=== PATIENT | male | born 1960 | race Caucasian/White ===

== ENCOUNTER 2018-09-24 20:08 | Emergency (ER) | payer OTHER ==
--- NOTE | 2018-09-24 20:54 | RAD ---
RADIOGRAPH CHEST 1 VIEW: 09/24/18 HISTORY: 57-year-old male with chest pain for eight days. FINDINGS: There are no air space densities, pulmonary edema, pneumothorax, or cardiomegaly. The lateral costop hrenic angles are sharp. IMPRESSION: No acute cardiopulmonary findings. jn [] POS: [facility]
[2018-09-24 20:58] LABS: #Basophils 0.1 thou/uL (0.0-0.2); #Eosinphils 0.3 thou/uL (0.0-0.7); #Lymphocytes 2.4 thou/uL (1.20-3.40); #Monocytes 0.9 thou/uL (0.11-0.59); #Neutrophils 5.1 thou/uL (1.40-6.50); %Basophils 0.8 % (0.0-1.0); %Eosinophils 3.4 % (0.0-10.0); %Lymphocytes 27.6 % (21.0-51.0); %Monocytes 9.7 % (0.0-10.0); %Neutrophils 58.4 % (42.0-75.0); Hemoglobin 14.6 g/dL (14.0-18.0); Mean Corpuscular HGB CONC 34.6 g/dL (32.0-36.0); Mean Corpuscular Hemoglobin 32.4 pg (27.0-31.0); Mean Corpuscular Volume 93.6 fL (78.0-98.0); Mean Platelet Volume 7.3 fL (7.4-10.4); Platelet Count 247 thou/uL (130-400); RBC Distribution Width 11.3 % (11.5-14.5); Red Blood Cell (RBC) Count 4.52 mill/uL (4.70-6.10); White Blood Cell (WBC) Count 8.8 thou/uL (4.8-10.8)
[2018-09-24 21:17] LABS: ALT (SGPT) 54 U/L (8-55); AST (SGOT) 38 U/L (5-34); Albumin 4.1 g/dL (3.5-5.0); Alkaline Phosphatase 108 U/L (40-150); Anion Gap 12 mmol/L (10-20); BUN (Urea Nitrogen) 11 mg/dL (8.4-25.7); Bilirubin, Total 0.5 mg/dL (0.2-1.2); CK (CPK) 44 U/L (30-200); Calc. Creatinine Clearance 0 mL/min (70-130); Calcium 9.4 mg/dL (7.8-10.44); Carbon Dioxide 26 mmol/L (22-29); Chloride 104 mmol/L (98-107); Estimated GFR-MDRD 89; Globulin 3.3 g/dL (2.4-3.5); Glucose 175 mg/dL (70-105); Lipase 10 U/L (8-78); Potassium 4.3 mmol/L (3.5-5.1); Protein, Total 7.4 g/dL (6.0-8.3); Sodium 138 mmol/L (136-145)
[2018-09-24] MEDS ORDERED: Proparacaine 0.5% Opth 15 ML BOT ONE (21:36)
--- NOTE | 2018-09-24 21:38 | CT ---
FCT Brain WO Con: 09/24/2018 12:00 AM CLINICAL HISTORY: Nausea/vomiting, occipital headache and blurred vision. COMPARISON: None. FINDINGS: Hemorrhage: None. Ventricular system: Normal in size and morphology for the patient's age. Cerebral parenchyma: Normal Midline shift: None. Mass: No mass effect. Calvarium: Normal. Visualized Paranasal sinuses: Clear. IMPRESSION: No acute intracranial abnormalities.
[2018-09-24] MEDS ORDERED: Acetaminophen 500 MG TAB ONE (21:54)
[2018-09-24] MEDS ORDERED: Aspirin Chewable 81 MG TAB ONE (21:54)
[2018-09-24] MEDS ORDERED: Nitroglycerin 2% Ointment 1 INCH/1 GM Packet ONE (21:54)
[2018-09-24] MEDS ORDERED: Ketorolac Tromethamine 30 MG/ML VIAL ONE (23:56)
== END 2018-09-25 00:14 ==
LOC: EEVIPCON 20:08 → ERS 20:08
DX: R07.9 Chest pain, unspecified (principal); R51 Headache; I10 Essential (primary) hypertension; J44.9 Chronic obstructive pulmonary disease, unspecified; Z87.891 Personal history of nicotine dependence
CPT/HCPCS: 70450; 71045; 80053; 82550; 83690; 84484; 85025; 93005; 94760; 96374; J1885

== ENCOUNTER 2018-12-22 17:39 | Emergency (ER) | payer OTHER ==
--- NOTE | 2018-12-22 18:52 | RAD ---
EXAM: Single view of the abdomen HISTORY: Abdominal pain and abdominal hernia COMPARISON: None FINDINGS: Single view of the abdomen shows a nonspecific, nonobstructive bowel gas pattern. Contrast is seen throughout the colon from recent contrast examination. No suspicious calcifications are seen. The bones are unremarkable. IMPRESSION: Unremarkable exam
--- NOTE | 2018-12-22 20:41 | CON ---
DATE OF CONSULTATION: 12/22/2018 HISTORY OF PRESENT ILLNESS: This is a 57-year-old inmate of a correctional facility. The patient was seen in [facility] with abdominal pain associated with his chronic ventral hernia. The patient denies any nausea or vomiting. He is passing flatus. Last bowel movement was 2 days ago. He denies any fevers or chills. PAST MEDICAL HISTORY: Significant for chronic ventral hernia over 30 years duration. Other pertinent past medical history includes essential hypertension, chronic hepatitis C, COPD, and degenerative arthritic disease. PAST SURGICAL HISTORY: Pertinent for appendectomy. SOCIAL HISTORY: The patient is currently incarcerated. He has an over 20-pack year cigarette smoking history, but has not smoked over 10 years. He denies any ethanol or illicit drug abuse. FAMILY HISTORY: Noncontributory for this patient's age. REVIEW OF SYSTEMS: Ten-point review of systems essentially unremarkable except as stated in past medical history and chief complaint. PHYSICAL EXAMINATION: GENERAL: This reveals a 57-year-old normally developed man, who is otherwise coherent, interactive, and appears stated age. The patient is alert and oriented x3, appears to be in no acute distress at the time of my evaluation. VITAL SIGNS: Include blood pressure 130/78, pulse 76, respiratory rate 16, temperature 98.2 degrees Fahrenheit, and oxygen saturation 99% on room air. HEENT: Pupils are equal, round, and reactive to light and accommodation. Extraocular muscles are intact bilaterally. He has no scleral icterus present. HEART: Reveals regular rate and rhythm. No murmurs or gallops auscultated. LUNGS: Clear to auscultation bilaterally. Breathing, regular and nonlabored. ABDOMEN: Soft with giant ventral hernia, which contains multiple loops of bowel. The overlying skin is denuded. He has no significant abdominal tenderness to palpation. Subjectively, though he complains of pain, however, he has no peritoneal signs on examination when distracted. Liver and spleen are nonpalpable below costal margins. Although, the patient denies having had any other surgeries besides appendectomy. His umbilicus is non-existent. NEUROLOGIC: Reveals no focal deficits present. LABORATORY FINDINGS: Today include a CBC with 7600 white blood cells, hemoglobin and hematocrit of 14.2 and 41.1 respectively. Platelet count is 229,000. Metabolic profile; sodium 138, potassium is 4.4, chloride is 105, bicarb is 23, BUN 15, creatinine 0.99, glucose 232, lactic acid is 1.7. AST and ALT are elevated at 45 and 71 respectively. I have personally reviewed the CT scan of the abdomen and pelvis obtained in [facility], which reveals a large ventral hernia, which contains small and large bowel. The oral contrast is already in the proximal colon. No pneumatosis intestinalis or pneumoperitoneum is evident. No free fluid is noted. I obtained abdominal x-ray here, which shows the oral contrast to be now in the distal descending colon. IMPRESSION: 1. Giant chronic ventral hernia with no evidence of obstruction. 2. History of essential hypertension. 3. History of chronic hepatitis C. RECOMMENDATIONS: There is no acute surgical indication for this patient at this time. The patient will be referred to [facility] for possible elective ventral hernia repair with likelihood of abdominal wall reconstruction at that time. Above findings and recommendations have been discussed with the patient, who indicates understanding of information given. I have answered his questions. Thank you again, Dr. Mckeon for allowing me the opportunity to place in the care of this patient. Job ID: [id number]
== END 2018-12-22 19:32 ==
LOC: ERS 17:39 → EEVIPCON 17:39 → ERS 19:32
DX: K43.9 Ventral hernia without obstruction or gangrene (principal); I10 Essential (primary) hypertension; J44.9 Chronic obstructive pulmonary disease, unspecified; Z87.891 Personal history of nicotine dependence; Z79.899 Other long term (current) drug therapy
CPT/HCPCS: 74018

== ENCOUNTER 2023-07-21 01:21 | Inpatient (IN) | payer OTHER ==
[2023-07-21] MEDS ORDERED: Furosemide 40 MG (4 mL) VIAL ONE ×2 (01:49→09:25)
[2023-07-21] MEDS ORDERED: Enoxaparin 100 MG (1 mL) SYRINGE ONE (02:24)
[2023-07-21 02:41] LABS: #Monocytes 0.3 thou/uL (0.11-0.59); #Neutrophils 16.3 thou/uL (1.40-6.50); %Basophils 0.2 % (0.0-1.0); %Eosinophils 0.2 % (0.0-10.0); %Lymphocytes 3.5 % (21.0-51.0); %Monocytes 1.9 % (0.0-10.0); %Neutrophils 93.6 % (42.0-75.0); Mean Corpuscular HGB CONC 34.1 g/dL (32.0-36.0); Mean Corpuscular Hemoglobin 30.2 pg (27.0-31.0); Mean Corpuscular Volume 88.6 fl (78.0-98.0); Mean Platelet Volume 9.8 fL (7.4-10.4); Platelet Count 272 10x3/uL (130-400); RBC Distribution Width 13.6 % (11.5-14.5); Red Blood Cell (RBC) Count 4.63 mill/uL (4.70-6.10); White Blood Cell (WBC) Count 17.5 10x3/uL (4.8-10.8)
[2023-07-21 03:04] LABS: ALT (SGPT) 64 U/L (8-55); AST (SGOT) 61 U/L (5-34); Albumin 3.5 g/dL (3.4-4.8); Alkaline Phosphatase 81 U/L (40-110); Anion Gap 15 mmol/L (10-20); BUN (Urea Nitrogen) 28 mg/dL (8.4-25.7); Calc. Creatinine Clearance 103 mL/min (70-130); Calcium 8.6 mg/dL (7.8-10.44); Carbon Dioxide 19 mmol/L (23-31); Chloride 103 mmol/L (98-107); Estimated GFR 77; Globulin 3.5 g/dL (2.4-3.5); Glucose 166 mg/dL (80-115); Magnesium 1.6 mg/dL (1.6-2.6); Potassium 3.9 mmol/L (3.5-5.1); Sodium 133 mmol/L (136-145)
[2023-07-21 03:13] LABS: Troponin I 0.054 ng/mL (< 0.028)
[2023-07-21] MEDS ORDERED: Ondansetron PF 4 MG/2 ML Vial IVP PRN (03:42)
[2023-07-21] MEDS ORDERED: Acetaminophen 325 MG TAB PO PRN (03:42)
[2023-07-21] MEDS ORDERED: Ipratropium/Albuterol 3 ML NEB NEB PRN (03:42)
[2023-07-21] MEDS ORDERED: Ondansetron ODT 4 MG TAB PO PRN (03:42)
[2023-07-21] MEDS ORDERED: Dextrose 50% Abboject 50 ML SYRINGE SLOW IVP PRN (04:56)
[2023-07-21] MEDS ORDERED: Dextrose 5% in Water 1,000 ML IV PRN (04:56)
[2023-07-21] MEDS ORDERED: Glucagon 1 MG/ML KIT IM PRN (04:56)
[2023-07-21] MEDS ORDERED: Electrolyte Replacement Protocol 1 EACH FS SCH (05:45)
[2023-07-21] MEDS ORDERED: Magnesium 2 GM/50 ML BAG (IN WATER) ONE (05:48)
[2023-07-21] MEDS ORDERED: Magnesium 2 GM/50 ML(in water) 2 GM in Premix 1 BAG IVPB SCH (06:00)
[2023-07-21 06:27] LABS: Troponin I 0.061 ng/mL (< 0.028)
[2023-07-21 06:30] LABS: Amphetamine Detected (NotDetected); Barbiturates Screen Not Detected (NotDetected); Benzodiazepine Screen Not Detected (NotDetected); Cocaine Metabolite Screen Not Detected (NotDetected); Methadone Not Detected (NotDetected); Methamphetamine Detected (NotDetected); Opiate Screen Not Detected (NotDetected); Oxycodone Screen Not Detected (NotDetected); Phencyclidine (PCP) Not Detected (NotDetected); THC/Cannabinoid Screen Not Detected (NotDetected); Tricyclic Screen Not Detected (NotDetected)
[2023-07-21 07:49] LABS: Hemoglobin A1c 11.5 % (4.0-6.0)
[2023-07-21] MEDS ORDERED: Ipratropium/Albuterol 3 ML NEB ONE (08:41)
[2023-07-21] MEDS: Ipratropium/Albuterol 3 ML NEB NEB SCH ×5 (08:45→23:07)
[2023-07-21 08:59] LABS: Troponin I 0.041 ng/mL (< 0.028)
[2023-07-21] MEDS ORDERED: Azithromycin 250 MG TAB ONE (09:25)
[2023-07-21] MEDS ORDERED: Iopamidol-370 76% 500 ML MDV (1 ML CHARGE) ONE (09:58)
[2023-07-21] MEDS: Furosemide 40 MG (4 mL) VIAL SLOW IVP SCH (10:45)
[2023-07-21] MEDS: Azithromycin 250 MG TAB PO SCH (10:45)
[2023-07-21] MEDS ORDERED: HumaLOG 300 UNITS/3 ML VIAL ONE (12:22)
[2023-07-21] MEDS: HumaLOG 300 UNITS/3 ML VIAL SC PRN ×3 (12:32→22:03)
[2023-07-21] MEDS ORDERED: dilTIAZem 25 MG/5 ML VIAL ONE (13:36)
[2023-07-21] MEDS ORDERED: dilTIAZem 125 MG/25 ML SDV ONE ×2 (13:41→13:47)
[2023-07-21] MEDS ORDERED: Sodium Chloride 0.9% 100 ML ONE (13:42)
[2023-07-21] MEDS: dilTIAZem 125 MG in Sodium Chloride 0.9% 100 ML IVPB SCH (13:52)
[2023-07-21 18:12] VITALS: BMI 29.1
[2023-07-21] MEDS ORDERED: Insulin Regular 300 UNITS/3 ML VIAL SC SCH (19:45)
[2023-07-21] MEDS: Enoxaparin 100 MG (1 mL) SYRINGE SC SCH (20:15)
[2023-07-21] MEDS: dilTIAZem 30 MG TAB PO SCH (21:09)
[2023-07-22] MEDS: Ipratropium/Albuterol 3 ML NEB NEB SCH ×5 (01:56→18:56)
[2023-07-22] MEDS: dilTIAZem 125 MG in Sodium Chloride 0.9% 100 ML IVPB SCH ×2 (02:58→16:42)
[2023-07-22 04:32] LABS: #Monocytes 1.4 thou/uL (0.11-0.59); #Neutrophils 16.2 thou/uL (1.40-6.50); %Basophils 0.1 % (0.0-1.0); %Monocytes 7.4 % (0.0-10.0); %Neutrophils 85.8 % (42.0-75.0); Hematocrit 39.9 % (42.0-52.0); Hemoglobin 13.7 g/dL (14.0-18.0); Mean Corpuscular HGB CONC 34.3 g/dL (32.0-36.0); Mean Corpuscular Hemoglobin 30.4 pg (27.0-31.0); Mean Corpuscular Volume 88.5 fl (78.0-98.0); Mean Platelet Volume 10.1 fL (7.4-10.4); Platelet Count 325 10x3/uL (130-400); RBC Distribution Width 13.6 % (11.5-14.5); Red Blood Cell (RBC) Count 4.51 mill/uL (4.70-6.10); White Blood Cell (WBC) Count 18.9 10x3/uL (4.8-10.8)
[2023-07-22 05:06] LABS: ALT (SGPT) 52 U/L (8-55); AST (SGOT) 34 U/L (5-34); Albumin 3.6 g/dL (3.4-4.8); Alkaline Phosphatase 76 U/L (40-110); Bilirubin, Direct 0.5 mg/dL (0.1-0.3); Bilirubin, Total 0.8 mg/dL (0.2-1.2)
[2023-07-22 05:11] LABS: Anion Gap 19 mmol/L (10-20); BUN (Urea Nitrogen) 53 mg/dL (8.4-25.7); Calc. Creatinine Clearance 66 mL/min (70-130); Calcium 9.2 mg/dL (7.8-10.44); Carbon Dioxide 20 mmol/L (23-31); Chloride 99 mmol/L (98-107); Estimated GFR 46; Glucose 289 mg/dL (80-115); Potassium 4.4 mmol/L (3.5-5.1); Sodium 134 mmol/L (136-145)
[2023-07-22] MEDS: dilTIAZem 30 MG TAB PO SCH ×3 (05:22→20:59)
[2023-07-22] MEDS: HumaLOG 300 UNITS/3 ML VIAL SC PRN ×4 (05:44→18:44)
[2023-07-22] MEDS ORDERED: dilTIAZem 30 MG TAB PO SCH ×2 (06:00→06:30)
[2023-07-22] MEDS: Digoxin 0.5 MG/2 ML AMP SLOW IVP SCH ×3 (06:34→18:44)
[2023-07-22] MEDS: Furosemide 40 MG (4 mL) VIAL SLOW IVP SCH (09:23)
[2023-07-22] MEDS: Enoxaparin 100 MG (1 mL) SYRINGE SC SCH ×2 (09:23→20:59)
[2023-07-22] MEDS: Azithromycin 250 MG TAB PO SCH (09:23)
[2023-07-22] MEDS ORDERED: Insulin Glargine 30 UNITS/0.3 ML VIAL SC SCH (16:15)
[2023-07-22 17:44] LABS: Bacteria/HPF None Seen HPF (None Seen); Bilirubin Negative (Negative); Blood, Urine Negative (Negative); CAUTI Indications for Culture Dysuria,urgency,freq; Clarity Clear (Clear); Glucose, Urine (Dipstick) 50 mg/dL (Negative); Ketone, Urine Negative (Negative); Leukocyte Negative Leu/uL (Negative); Nitrite Negative (Negative); Protein, Urine (Dipstick) Negative (Neg-Trace); RBC/HPF None Seen HPF (0-3); Specific Gravity, Urine 1.018 (1.002-1.036); Squamous Epithelial 0-3 HPF (0-3); Urobilinogen Normal mg/dL (Less than 2); WBC/HPF 0-3 HPF (0-3)
[2023-07-22 17:47] LABS: Sperm/HPF 3+ HPF (None Seen)
[2023-07-22 17:48] LABS: Urine Culture Reflex No No
[2023-07-23] MEDS: Ipratropium/Albuterol 3 ML NEB NEB SCH ×4 (00:05→19:39)
[2023-07-23] MEDS: HumaLOG 300 UNITS/3 ML VIAL SC PRN ×5 (00:41→23:46)
[2023-07-23] MEDS: dilTIAZem 30 MG TAB PO SCH (05:32)
[2023-07-23 06:52] LABS: #Eosinphils 0.1 thou/uL (0.0-0.7); #Monocytes 1.4 thou/uL (0.11-0.59); #Neutrophils 9.1 thou/uL (1.40-6.50); %Basophils 0.2 % (0.0-1.0); %Eosinophils 0.7 % (0.0-10.0); %Lymphocytes 12.4 % (21.0-51.0); %Monocytes 11.2 % (0.0-10.0); %Neutrophils 74.8 % (42.0-75.0); Hematocrit 41.3 % (42.0-52.0); Hemoglobin 13.8 g/dL (14.0-18.0); Mean Corpuscular HGB CONC 33.4 g/dL (32.0-36.0); Mean Corpuscular Hemoglobin 29.6 pg (27.0-31.0); Mean Corpuscular Volume 88.4 fl (78.0-98.0); Mean Platelet Volume 9.3 fL (7.4-10.4); Platelet Count 268 10x3/uL (130-400); RBC Distribution Width 13.8 % (11.5-14.5); Red Blood Cell (RBC) Count 4.67 mill/uL (4.70-6.10); White Blood Cell (WBC) Count 12.2 10x3/uL (4.8-10.8)
[2023-07-23 07:17] LABS: Anion Gap 14 mmol/L (10-20); BUN (Urea Nitrogen) 45 mg/dL (8.4-25.7); Calc. Creatinine Clearance 77 mL/min (70-130); Calcium 8.7 mg/dL (7.8-10.44); Carbon Dioxide 22 mmol/L (23-31); Chloride 102 mmol/L (98-107); Estimated GFR 56; Glucose 242 mg/dL (80-115); Sodium 134 mmol/L (136-145)
[2023-07-23] MEDS ORDERED: Insulin Glargine 30 UNITS/0.3 ML VIAL SC SCH ×2 (09:00→17:15)
[2023-07-23] MEDS: Azithromycin 250 MG TAB PO SCH (09:49)
[2023-07-23] MEDS: Enoxaparin 100 MG (1 mL) SYRINGE SC SCH (09:50)
[2023-07-23] MEDS: Furosemide 40 MG (4 mL) VIAL SLOW IVP SCH (09:50)
[2023-07-23] MEDS: dilTIAZem 125 MG in Sodium Chloride 0.9% 100 ML IVPB SCH (13:28)
[2023-07-23] MEDS: Apixaban 5 MG TAB PO SCH (20:53)
[2023-07-24] MEDS: Ipratropium/Albuterol 3 ML NEB NEB SCH ×3 (02:13→12:54)
[2023-07-24 05:25] LABS: #Eosinphils 0.3 thou/uL (0.0-0.7); #Monocytes 1.2 thou/uL (0.11-0.59); #Neutrophils 5.6 thou/uL (1.40-6.50); %Basophils 0.2 % (0.0-1.0); %Eosinophils 3.4 % (0.0-10.0); %Lymphocytes 18.3 % (21.0-51.0); %Monocytes 13.1 % (0.0-10.0); %Neutrophils 64.3 % (42.0-75.0); Hematocrit 45.2 % (42.0-52.0); Hemoglobin 14.7 g/dL (14.0-18.0); Mean Corpuscular HGB CONC 32.5 g/dL (32.0-36.0); Mean Corpuscular Hemoglobin 29.1 pg (27.0-31.0); Mean Corpuscular Volume 89.5 fl (78.0-98.0); Mean Platelet Volume 9.5 fL (7.4-10.4); Platelet Count 286 10x3/uL (130-400); RBC Distribution Width 13.8 % (11.5-14.5); Red Blood Cell (RBC) Count 5.05 mill/uL (4.70-6.10); White Blood Cell (WBC) Count 8.8 10x3/uL (4.8-10.8)
[2023-07-24 05:54] LABS: Anion Gap 12 mmol/L (10-20); BUN (Urea Nitrogen) 29 mg/dL (8.4-25.7); Calc. Creatinine Clearance 104 mL/min (70-130); Calcium 8.7 mg/dL (7.8-10.44); Carbon Dioxide 26 mmol/L (23-31); Chloride 103 mmol/L (98-107); Estimated GFR 82; Glucose 142 mg/dL (80-115); Sodium 137 mmol/L (136-145)
[2023-07-24] MEDS: Apixaban 5 MG TAB PO SCH (08:09)
[2023-07-24] MEDS: Furosemide 40 MG (4 mL) VIAL SLOW IVP SCH ×2 (08:10→08:17)
[2023-07-24] MEDS ORDERED: Sacubitril 24MG/Valsartan 26 MG TAB PO SCH (09:00)
[2023-07-24] MEDS ORDERED: Insulin Glargine 30 UNITS/0.3 ML VIAL SC SCH (09:00)
[2023-07-24] MEDS ORDERED: Lisinopril 2.5 MG TAB PO SCH (09:00)
[2023-07-24] MEDS ORDERED: Furosemide 40 MG TAB PO SCH (09:45)
[2023-07-24 11:23] VITALS: BP 138/84; TEMP 98
[2023-07-24] MEDS ORDERED: FLU VACC QS2023-24(6MOS UP)/PF 60 MCG/0.5 ML SYRINGE IM ONE (17:00)
[2023-07-25] MEDS ORDERED: Furosemide 40 MG TAB PO SCH (07:30)
== END 2023-07-24 12:50 | disposition home or self-care (01) | DRG 291 ==
LOC: ERS 01:21 → ERHOLD 02:12 → 2SW 16:18
PROVIDERS: ADMIT Student in an Organized Health Care Education/Training Program; ATTEND Internal Medicine
DX: I13.0 Hypertensive heart and chronic kidney disease with heart failure and stage 1 through stage 4 chronic kidney disease, or unspecified chronic kidney disease (principal); I50.23 Acute on chronic systolic (congestive) heart failure; J96.01 Acute respiratory failure with hypoxia; I48.19 Other persistent atrial fibrillation; N17.9 Acute kidney failure, unspecified; E87.1 Hypo-osmolality and hyponatremia; J44.1 Chronic obstructive pulmonary disease with (acute) exacerbation; F17.210 Nicotine dependence, cigarettes, uncomplicated; K43.9 Ventral hernia without obstruction or gangrene; K42.9 Umbilical hernia without obstruction or gangrene; N18.2 Chronic kidney disease, stage 2 (mild); E11.22 Type 2 diabetes mellitus with diabetic chronic kidney disease; R74.01 Elevation of levels of liver transaminase levels; Z79.899 Other long term (current) drug therapy; Z79.84 Long term (current) use of oral hypoglycemic drugs; Z90.49 Acquired absence of other specified parts of digestive tract; Z98.890 Other specified postprocedural states
CPT/HCPCS: 36415; 36416; 71275; 80048; 80053; 80076; 80306; 81001; 83036; 83735; 83880; 84443; 84484; 85025; 93005; 93306; 94640; 96365; 96366; 96372; 96374; 97139; J1160; J1650; J1815; J1940; J3475; J3490; J7620; Q9967

== ENCOUNTER 2024-05-27 03:40 | Inpatient (IN) | payer MEDICARE, MEDICAID ==
[2024-05-27 04:24] LABS: #Basophils Less than 0.03 10x3/uL (0.0-0.2); #Eosinophils Less than 0.03 10x3/uL (0.0-0.7); %Basophils 0.2 % (0.0-1.0); %Eosinophils 0.2 % (0.0-10.0); %Lymphocytes 4.5 % (21.0-51.0); %Monocytes 5.6 % (0.0-10.0); %Neutrophils 88.9 % (42.0-75.0); Hematocrit 36.6 % (42.0-52.0); Hemoglobin 11.9 g/dL (14.0-18.0); Mean Corpuscular HGB CONC 32.5 g/dL (32.0-36.0); Mean Corpuscular Hemoglobin 30.9 pg (27.0-31.0); Mean Corpuscular Volume 95.1 fL (78.0-98.0); Mean Platelet Volume 9.5 fL (7.4-10.4); Platelet Count 243 10x3/uL (130-400); RBC Distribution Width 13.9 % (11.5-14.5); Red Blood Cell (RBC) Count 3.85 mill/uL (4.70-6.10)
[2024-05-27 05:01] LABS: Acetaminophen Less than 10 mcg/mL (Less than 10); Alcohol Less than 10.0 mg/dL (Less than 10); Salicylate Less than 8.0 mg/dL (Less than 8.0)
[2024-05-27 05:02] LABS: ALT (SGPT) 153 U/L (8-55); AST (SGOT) 33 U/L (5-34); Albumin 3.4 g/dL (3.4-4.8); Alkaline Phosphatase 83 U/L (40-110); Anion Gap 16 mmol/L (10-20); BUN (Urea Nitrogen) 17 mg/dL (8.4-25.7); Bilirubin, Total 1.2 mg/dL (0.2-1.2); CK (CPK) 89 U/L (30-200); Calc. Creatinine Clearance 0 mL/min (70-130); Calcium 8.9 mg/dL (7.8-10.44); Carbon Dioxide 19 mmol/L (23-31); Chloride 108 mmol/L (98-107); Estimated GFR 49; Globulin 3.9 g/dL (2.4-3.5); Glucose 194 mg/dL (80-115); Potassium 4.3 mmol/L (3.5-5.1); Protein, Total 7.3 g/dL (5.8-8.1); Sodium 139 mmol/L (136-145)
[2024-05-27] MEDS ORDERED: Metoprolol Tartrate 50 MG TAB ONE (05:24)
[2024-05-27 05:33] LABS: Amphetamine Detected (NotDetected); Barbiturates Screen Not Detected (NotDetected); Benzodiazepine Screen Not Detected (NotDetected); Cocaine Metabolite Screen Not Detected (NotDetected); Methadone Not Detected (NotDetected); Methamphetamine Detected (NotDetected); Opiate Screen Not Detected (NotDetected); Oxycodone Screen Not Detected (NotDetected); Phencyclidine (PCP) Not Detected (NotDetected); THC/Cannabinoid Screen Not Detected (NotDetected); Tricyclic Screen Not Detected (NotDetected)
[2024-05-27 07:43] LABS: Troponin I 0.044 ng/mL (< 0.028)
[2024-05-27] MEDS ORDERED: Ondansetron PF 4 MG/2 ML Vial IVP PRN (09:01)
[2024-05-27] MEDS ORDERED: Dextrose 5% in Water 1,000 ML IV PRN (09:22)
[2024-05-27] MEDS ORDERED: Dextrose 50% Abboject 50 ML SYRINGE SLOW IVP PRN (09:22)
[2024-05-27] MEDS ORDERED: Glucagon 1 MG/ML KIT IM PRN (09:22)
[2024-05-27] MEDS ORDERED: Insulin Lispro 100 UNIT/ML 10 ML VIAL SC PRN ×2 (09:22)
[2024-05-27 11:21] VITALS: BMI 27.0
[2024-05-27] MEDS ORDERED: Nicotine 21 MG PATCH TD PRN (12:02)
[2024-05-27] MEDS: Apixaban 5 MG TAB PO SCH ×2 (12:08→19:54)
[2024-05-27 12:09] LABS: Lactic Acid 2.27 mmol/L (0.5-2.2)
[2024-05-27] MEDS: Acetaminophen 325 MG TAB PO PRN (12:16)
[2024-05-27] MEDS: Ondansetron ODT 4 MG TAB PO PRN (12:16)
[2024-05-27 12:20] LABS: Troponin I 0.055 ng/mL (< 0.028)
[2024-05-27] MEDS: Lactated Ringer's 1,000 ML IV SCH (12:20)
[2024-05-27] MEDS ORDERED: Menthol/Camphor Lotion 222 ml Bottle TOP PRN (12:45)
[2024-05-27 13:24] LABS: Troponin I 0.059 ng/mL (< 0.028)
[2024-05-27] MEDS: traMADol HCl 50 MG TAB PO SCH (13:24)
[2024-05-27] MEDS: Lorazepam 2 MG/ML VIAL SLOW IVP PRN (13:28)
[2024-05-27 14:40] LABS: Bacteria/HPF 3+ HPF (None Seen); Bilirubin Negative (Negative); Blood, Urine Negative (Negative); CAUTI Indications for Culture Alt mental st,lethar; Clarity Clear (Clear); Glucose, Urine (Dipstick) Greater than 1000 mg/dL (Negative); Ketone, Urine Trace mg/dL (Negative); Leukocyte Negative Leu/uL (Negative); Nitrite Negative (Negative); Protein, Urine (Dipstick) 50 mg/dL (Neg-Trace); RBC/HPF 0-3 HPF (0-3); Specific Gravity, Urine 1.023 (1.002-1.036); Squamous Epithelial 0-3 HPF (0-3); Urobilinogen Normal mg/dL (Less than 2); pH, Urine 5.5 (5.0-9.0)
[2024-05-27 14:45] LABS: Urine Culture Reflex No No
[2024-05-27] MEDS: Sterile Water 10 ML ONE ×2 (15:58→18:43)
[2024-05-27] MEDS ORDERED: OLANZapine 5 MG TAB PO SCH (16:00)
[2024-05-27] MEDS: Ziprasidone 20 MG VIAL ONE (16:12)
[2024-05-27] MEDS: Ziprasidone 20 MG VIAL IM SCH ×2 (16:12→18:43)
[2024-05-27] MEDS: Gabapentin 300 MG CAP PO SCH (16:19)
[2024-05-27] MEDS: Lorazepam 2 MG/ML VIAL ONE (19:28)
[2024-05-27] MEDS: Haloperidol Lactate 5 MG/ML VIAL ONE (19:37)
[2024-05-27] MEDS: Dexmedetomidine In 0.9 % NaCl 100 ML IV SCH (19:49)
[2024-05-27] MEDS: Atorvastatin Calcium 40 MG TAB PO SCH (19:54)
[2024-05-27] MEDS: Insulin Glargine 30 UNITS/0.3 ML VIAL SC SCH (19:54)
[2024-05-27 20:14] VITALS: BP 121/86
[2024-05-27 21:05] LABS: Lactic Acid 1.35 mmol/L (0.5-2.2)
[2024-05-27 21:08] LABS: Anion Gap 13 mmol/L (10-20); BUN (Urea Nitrogen) 23 mg/dL (8.4-25.7); Calc. Creatinine Clearance 65 mL/min (70-130); Calcium 8.6 mg/dL (7.8-10.44); Carbon Dioxide 20 mmol/L (23-31); Chloride 110 mmol/L (98-107); Estimated GFR 50; Glucose 85 mg/dL (80-115); Potassium 4.1 mmol/L (3.5-5.1); Sodium 139 mmol/L (136-145)
[2024-05-28] MEDS: Dextrose 5%-Lactated Ringers 1,000 ML IV SCH (02:30)
[2024-05-28 04:02] LABS: #Basophils 0.06 10x3/uL (0.0-0.2); %Basophils 0.8 % (0.0-1.0); %Eosinophils 5.7 % (0.0-10.0); %Lymphocytes 28.2 % (21.0-51.0); %Monocytes 17.9 % (0.0-10.0); %Neutrophils 46.8 % (42.0-75.0); Hematocrit 38.8 % (42.0-52.0); Hemoglobin 12.5 g/dL (14.0-18.0); Mean Corpuscular HGB CONC 32.2 g/dL (32.0-36.0); Mean Corpuscular Hemoglobin 31.4 pg (27.0-31.0); Mean Corpuscular Volume 97.5 fL (78.0-98.0); Mean Platelet Volume 10.4 fL (7.4-10.4); Platelet Count 234 10x3/uL (130-400); Red Blood Cell (RBC) Count 3.98 mill/uL (4.70-6.10)
[2024-05-28] MEDS ORDERED: Ipratropium/Albuterol 3 ML NEB NEB PRN (04:02)
[2024-05-28 04:17] LABS: Anion Gap 13 mmol/L (10-20); BUN (Urea Nitrogen) 23 mg/dL (8.4-25.7); Calc. Creatinine Clearance 67 mL/min (70-130); Carbon Dioxide 20 mmol/L (23-31); Cardiac Risk 5.1 (Less than 4.5); Chloride 112 mmol/L (98-107); Cholesterol 92 mg/dl (< 200 Desired); Estimated GFR 52; Glucose 86 mg/dL (80-115); HDL Cholesterol 18 mg/dL (>60 Neg Risk); LDL Cholesterol, Calculated 62 mg/dL; Sodium 140 mmol/L (136-145); Triglycerides 60 mg/dL (Less than 150)
[2024-05-28 04:17] LABS: Hemoglobin A1c 9.8 % (4.0-6.0)
[2024-05-28] MEDS: Lorazepam 2 MG/ML VIAL SLOW IVP PRN (05:55)
[2024-05-28 08:36] LABS: Hep C IgG Ab Reflex HepC Qnt S/CO (NonReactive); Hep C Index 16.53 S/CO (0-0.79)
[2024-05-28 08:38] LABS: HBSAB Concentration Less than 8.00 mIU/mL; Hep B Surf AB NONREACTIVE (NonReactive)
[2024-05-28 09:15] LABS: HIV (1/2) Antibody/Antigen NONREACTIVE (NonReactive); HIV 1/2 INDEX 0.05 S/CO (<1.00)
[2024-05-28] MEDS: Aspirin 81 mg Enteric Coated Tablet PO SCH (09:43)
[2024-05-28] MEDS: Pantoprazole 40 MG VIAL IVP SCH (09:44)
[2024-05-28] MEDS: FLU (Fluad Triv) TS24-25 (65UP)/MF59C/PF 45 MCG/0.5 ML Syringe IM ONE (09:44)
[2024-05-28 21:05] VITALS: BMI 26.6
[2024-05-29 05:43] LABS: #Basophils 0.03 10x3/uL (0.0-0.2); %Basophils 0.5 % (0.0-1.0); %Eosinophils 5.9 % (0.0-10.0); %Lymphocytes 15.6 % (21.0-51.0); %Monocytes 10.6 % (0.0-10.0); %Neutrophils 67.1 % (42.0-75.0); Hematocrit 40.8 % (42.0-52.0); Mean Corpuscular HGB CONC 31.9 g/dL (32.0-36.0); Mean Corpuscular Hemoglobin 30.4 pg (27.0-31.0); Mean Corpuscular Volume 95.3 fL (78.0-98.0); Mean Platelet Volume 9.4 fL (7.4-10.4); Platelet Count 202 10x3/uL (130-400); RBC Distribution Width 13.6 % (11.5-14.5); Red Blood Cell (RBC) Count 4.28 mill/uL (4.70-6.10)
[2024-05-29 06:04] LABS: Anion Gap 12 mmol/L (10-20); BUN (Urea Nitrogen) 20 mg/dL (8.4-25.7); Calc. Creatinine Clearance 86 mL/min (70-130); Calcium 8.5 mg/dL (7.8-10.44); Carbon Dioxide 20 mmol/L (23-31); Chloride 108 mmol/L (98-107); Estimated GFR 71; Glucose 132 mg/dL (80-115); Potassium 4.2 mmol/L (3.5-5.1); Sodium 136 mmol/L (136-145)
[2024-05-29 12:50] VITALS: TEMP 97.7
[2024-05-31 13:14] LABS: Hep C PCR-Quant HCV Not Detected IU/mL (.)
== END 2024-05-29 14:30 | disposition left against medical advice (07) | DRG 917 ==
LOC: EEVIPCON 03:40 → ERS 03:40 → 2SE 09:01 → IMCU/EMU 18:51
PROVIDERS: ADMIT Family Medicine; ATTEND Internal Medicine
DX: T43.651A Poisoning by methamphetamines accidental (unintentional), initial encounter (principal); G92.8 Other toxic encephalopathy; E87.20 Acidosis, unspecified; I13.0 Hypertensive heart and chronic kidney disease with heart failure and stage 1 through stage 4 chronic kidney disease, or unspecified chronic kidney disease; I42.0 Dilated cardiomyopathy; I50.22 Chronic systolic (congestive) heart failure; N17.9 Acute kidney failure, unspecified; F15.929 Other stimulant use, unspecified with intoxication, unspecified; I48.0 Paroxysmal atrial fibrillation; E11.22 Type 2 diabetes mellitus with diabetic chronic kidney disease; N18.2 Chronic kidney disease, stage 2 (mild); F17.210 Nicotine dependence, cigarettes, uncomplicated; Z79.4 Long term (current) use of insulin; Z79.82 Long term (current) use of aspirin; Z79.890 Hormone replacement therapy; Z79.899 Other long term (current) drug therapy; Z79.01 Long term (current) use of anticoagulants; Z79.84 Long term (current) use of oral hypoglycemic drugs
CPT/HCPCS: 36415; 36416; 70450; 71045; 71046; 80048; 80053; 80061; 80306; 80307; 81001; 82140; 82550; 83036; 83605; 83735; 83880; 84443; 84484; 85025; 86706; 86803; 87389; 87522; 93005; 93010; 96360; 96361; 97139; J2060; J2470; J3486; J7120; Q0162